=== PATIENT | male | born 1955 | race Caucasian/White ===

== ENCOUNTER 2022-07-11 10:42 | Day surgery (SDC) | payer MEDICARE, OTHER ==
[~2022-07-11] VITALS: Ht 172.7 cm; Wt 95.1 kg
[2022-07-11] MEDS ORDERED: ASPI81CH PO (11:22)
--- NOTE | 2022-07-11 11:24 | NUR ---
07/11/22 1124 Jose Cruz Rodriguez CALL LIGHT WITHIN REACH
== END 2022-07-11 14:30 | disposition home or self-care (01) ==
LOC: ORSCSDS 10:42
PROVIDERS: Orthopaedic Surgery
PROC: 0LQM0ZZ Repair Left Upper Leg Tendon, Open Approach (ICD-10-PCS; principal; 2022-07-11 12:00)
DX: S76.112A Strain of left quadriceps muscle, fascia and tendon, initial encounter (principal); K76.0 Fatty (change of) liver, not elsewhere classified; F17.290 Nicotine dependence, other tobacco product, uncomplicated
CPT/HCPCS: J0690; J1100; J2250; J2370; J2405; J2704; J2795; J3010; J7120